=== PATIENT | female | born 1940 | race Caucasian/White ===

== ENCOUNTER 2019-04-29 17:51 | Inpatient (IN) | payer OTHER, MEDICARE ==
[~2019-04-29] VITALS: Ht 152.4 cm; Wt 60.6 kg
[~2019-04-29 17:51] MED LIST: ABAC300; ALPR1 PO; AMLO5 PO; AMOCLA500 PO; ASPI81CH PO; ATOR20 PO; CEFU500 PO; CEPH500 PO; CHLO25 PO; CHLO25B PO; CLON.2 PO; CLON.2TP TOP; CYCL10 PO; Chlorthalidone25 MG PO; Colace100 MG PO; Cortef5 MG PO; Cytomel5 MCG PO; DESM.01SO; DESMOPRESS10 MCG/0.1; DESMOPRESSIN ACE5 ML; DESMOPRESSIN NS; ESTRTP VAG; FERR325 PO; HYDCOR10 PO; HYDR1TAB94 PO; LANS15EC PO; LEVSOD100 PO; LOSA50 PO; METF500 PO; METO10 PO; METO50ER PO; MIRALAX119 GM PO; NICO2 PO; NITR.4SL SL; OMEP20ER PO; ONDA4 PO; ONDA4ODT MM; OXYC10TA19 PO; OXYC5 PO; PANT40 PO; PHENA200 PO; PROC25S PR; Prilosec Otc20 MG PO; SERT50 PO; SPIR25 PO; STOOL SOFTENER1 EAC1 PO; Senna S Tablet1 EACH PO
[2019-04-29] MEDS ORDERED: ASPI81CH PO (18:24)
[2019-04-29] MEDS ORDERED: AMLO10 PO (18:24)
[2019-04-29] MEDS ORDERED: Vitamin D2000 UNIT PO (18:25)
[2019-04-29] MEDS ORDERED: Augmentin 875-1 EACH PO (18:25)
[2019-04-29] MEDS ORDERED: ATOR40TA PO (18:25)
[2019-04-29] MEDS ORDERED: DOCU100 PO (18:26)
[2019-04-29] MEDS ORDERED: CLON.2 PO (18:26)
[2019-04-29] MEDS ORDERED: HYDCOR10 PO (18:27)
[2019-04-29] MEDS ORDERED: FERSU300 PO (18:27)
[2019-04-29] MEDS ORDERED: GLIP5 PO (18:27)
[2019-04-29] MEDS ORDERED: Cortef5 MG PO (18:28)
[2019-04-29] MEDS ORDERED: HYDR454TO TOP (18:28)
[2019-04-29] MEDS ORDERED: LEVSOD50 PO (18:29)
[2019-04-29] MEDS ORDERED: EQ GENTLE30 ML BOTHEYES (18:29)
[2019-04-29] MEDS ORDERED: LIOT5 PO (18:29)
[2019-04-29] MEDS ORDERED: METO50ER PO (18:30)
[2019-04-29] MEDS ORDERED: ONDA4 PO (18:30)
[2019-04-29] MEDS ORDERED: OMEPRAZOLE20 MG PO (18:30)
[2019-04-29] MEDS ORDERED: LOSA50 PO (18:30)
[2019-04-29] MEDS ORDERED: OXYC5 PO (18:31)
[2019-04-29] MEDS ORDERED: SENN187 PO (18:31)
[2019-04-29 22:23] LABS: Albumin, Blood 3.1 g/dL (3.4-5.0); Albumin/Globulin Ratio 0.9 (0.8-1.8); Bilirubin, Total 0.3 mg/dL (0.1-1.0); Bun/Creatinine Ratio 15.7 (12.0-20.0); Calcium, Blood 8.5 mg/dL (8.5-10.1); Creatinine, Blood 1.15 mg/dL (0.40-1.00); Globulin, Blood 3.6 g/dL (2.2-4.0); Potassium, Blood 4.5 mmol/L (3.5-5.5); Total Protein, Blood 6.7 g/dL (6.4-8.2)
--- NOTE | 2019-04-29 23:08 | NUR ---
PATIENT IS A NEW ADMIT FROM THE ED. AXO X3 AND FOUR PERSON TRANSFER FROM [facility] TO BED. 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 PACEMAKER REPLACED THIS YEAR. NEW T.E.N.S. DEVICE ON LOW BACK THIS THURSDAY. CEDS. CBG 91 ON ADMIT. REPORTS LOW BACK PAIN FROM DIVERTICULITIS. ROOM AIR. ORIENTED TO ROOM AND CALL LIGHT SYSTEM. CALL LIGHT IN REACH. WILL CONTINUE TO MONITOR.
--- NOTE | 2019-04-30 00:29 | NUR ---
NS INFUSING AT 150 mL/HR X ONE BAG. IV ABXS INFUSING. PATIENT TOLERATED CHICKEN BROTH AND FLUIDS. DENIES N/V. CALL LIGHT IN REACH.
--- NOTE | 2019-04-30 02:24 | NUR ---
PATIENT SLEEPING NS INFUSING AT 150mL/HR. IV ABX INFUSED. CALL LIGHT IN REACH.
--- NOTE | 2019-04-30 03:37 | NUR ---
SHIFT SUMMARY PATIENT HAD NO ACUTE CHANGES SINCE ADMIT. AXO X3 AND BEDFAST. TOLERATING FULL LIQUID DIET AND FLUIDS. CBG 91. PATIENT REPORTS HAVING HER PACEMAKER REPLACED THREE MONTHS AGO AND THURSDAY HAVING A T.E.N.S. IMPLANT IN LOW BACK. PIV REMAINS INTACT. NS INFUSING AT 150 mL/HR. TWO IV ABXS INFUSED. REPORTED ABDOMEN PAIN X ONE AND OXY 5 MG PO GIVEN PER EMAR. TAKES MEDICAITON WHOLE WITH WATER. BLIND IN R EYE AND 30% VISION REPORTED IN L EYE. CEDS. ACTIVE BOWEL TONES X 4 QUADRANTS. COOPERATIVE WITH CARE. CALL LIGHT IN REACH. BED IN LOWEST POSITION. WILL CONTINUE TO MONITOR UNTIL DAY SHIFT NURSE ASSUMES CARE.
[2019-04-30 05:30] LABS: BASOPHILS ABSOLUTE AUTO 0.07 K/mm3 (0.00-0.23); BASOPHILS PERCENT AUTO 0 % (0-2); EOSINOPHILS ABSOLUTE AUTO 0.36 K/mm3 (0.00-0.68); EOSINOPHILS PERCENT AUTO 2 % (0-6); Hematocrit 35.2 % (33.0-51.0); Hemoglobin 11.1 g/dL (11.5-16.0); IMMATURE GRAN ABSOLUTE AUTO 0.07 K/mm3 (0.00-0.10); IMMATURE GRAN PERCENT AUTO 0 % (0-1); LYMPHOCYTES ABSOLUTE AUTO 2.34 K/mm3 (0.84-5.20); LYMPHOCYTES PERCENT AUTO 15 % (21-46); MONOCYTES ABSOLUTE AUTO 1.01 K/mm3 (0.16-1.47); MONOCYTES PERCENT AUTO 6 % (4-13); Mean Corpuscular HGB 28.8 pg (26.0-34.0); Mean Corpuscular HGB Conc 31.5 g/dL (31.5-36.5); Mean Corpuscular Volume 91 fL (80-100); Mean Platelet Volume 9.6 fL (9.1-12.4); NEUTROPHILS PERCENT AUTO 76 % (41-73); Platelet Count 236 K/mm3 (150-400); RDW Coefficient Variation 13.9 % (11.7-14.2); RDW Standard Deviation 46.9 fL (35.1-46.3); Red Blood Cell Count 3.85 M/mm3 (3.80-5.20); White Blood Cell Count 15.85 K/mm3 (4.00-11.30)
[2019-04-30 05:46] LABS: Bun/Creatinine Ratio 14.9 (12.0-20.0); Calcium, Blood 8.1 mg/dL (8.5-10.1); Creatinine, Blood 1.21 mg/dL (0.40-1.00); Potassium, Blood 4.1 mmol/L (3.5-5.5)
--- NOTE | 2019-04-30 17:51 | NUR ---
RECEIVED T/C FROM PT'S DAUGHTER ENMANUEL. SHE EXPRESSED CONCERN ABOUT PT'S FULL LIQUID DIET AND THAT PT WAS RECEIVING V8 JUICE. ENMANUEL IS UNDER THE IMPRESSION THAT PT SHOULD BE ON A CLEAR LIQUID DIET. THIS CONCERN PASSED ALONG TO DR BRYANT AND ORDERS RECEIVED FOR A DIET CHANGE FROM FULL LIQUID TO CLEAR LIQUID.
--- NOTE | 2019-04-30 17:56 | NUR ---
PT CONTINUES TO REPORT ABD PAIN, WORSE WITH COUGH. DIET CHANGED FROM FULL LIQUID TO CLEAR LIQUID. MEDICATED FOR NAUSEA X1 THIS AFTERNOON, NO TOLERATING PO MEDS WELL. MEDICATED WITH 12.5 mcg IV FENTANLY WHICH PT REPORTED SOME SMALL RELIEF. WILL CONTINUE TO MONITOR AND REPORT TO ONCOMING RN
--- NOTE | 2019-05-01 04:00 | NUR ---
SHIFT SUMMARY PATIENT HAD NO ACUTE CHANGES OBSERVED THIS SHIFT. AXOX 3 AND REPORTED ABDOMINAL PAIN X 2. RECEIVED IV FENTANYL 25 MCG AND OXY 5 MG. CBG 107. PIV REMAINS INTACT. IV ABXS INFUSED. DENIES SOB AND N/V. PATIENT INCONTINENT. VSS/AFBERILE. CLEAR LIQUID DIET. TAKES MEDICATION WHOLE WITH WATER. COOPERATIVE WITH CARE. CALL LIGHT IN REACH. BED IN LOWEST POSITION. WILL CONTINUE TO MONITOR UNTIL DAY SHIFT NURSE ASSUMES CARE.
[2019-05-01 09:42] LABS: BASOPHILS ABSOLUTE AUTO 0.03 K/mm3 (0.00-0.23); BASOPHILS PERCENT AUTO 0 % (0-2); EOSINOPHILS ABSOLUTE AUTO 0.65 K/mm3 (0.00-0.68); EOSINOPHILS PERCENT AUTO 4 % (0-6); Hematocrit 33.3 % (33.0-51.0); Hemoglobin 10.9 g/dL (11.5-16.0); IMMATURE GRAN ABSOLUTE AUTO 0.08 K/mm3 (0.00-0.10); IMMATURE GRAN PERCENT AUTO 1 % (0-1); LYMPHOCYTES ABSOLUTE AUTO 1.89 K/mm3 (0.84-5.20); LYMPHOCYTES PERCENT AUTO 13 % (21-46); MONOCYTES ABSOLUTE AUTO 0.85 K/mm3 (0.16-1.47); MONOCYTES PERCENT AUTO 6 % (4-13); Mean Corpuscular HGB 29.3 pg (26.0-34.0); Mean Corpuscular HGB Conc 32.7 g/dL (31.5-36.5); Mean Corpuscular Volume 90 fL (80-100); Mean Platelet Volume 9.7 fL (9.1-12.4); NEUTROPHILS ABSOLUTE AUTO 11.64 K/mm3 (1.96-9.15); NEUTROPHILS PERCENT AUTO 77 % (41-73); Platelet Count 206 K/mm3 (150-400); RDW Standard Deviation 45.6 fL (35.1-46.3); Red Blood Cell Count 3.72 M/mm3 (3.80-5.20); White Blood Cell Count 15.14 K/mm3 (4.00-11.30)
[2019-05-01 09:57] LABS: Albumin, Blood 2.3 g/dL (3.4-5.0); Anion Gap 7 mmol/L (6-16); Blood Urea Nitrogen 14 mg/dL (8-24); Bun/Creatinine Ratio 11.7 (12.0-20.0); CO2, Blood 24 mmol/L (21-32); Calcium, Blood 7.9 mg/dL (8.5-10.1); Chloride, Blood 107 mmol/L (98-108); Glomerular Filtration Rate 46 (60-); Glucose, Blood 90 mg/dL (70-99); Phosphorus, Blood 2.4 mg/dL (2.5-4.9); Potassium, Blood 3.9 mmol/L (3.5-5.5); Sodium, Blood 138 mmol/L (136-145)
--- NOTE | 2019-05-01 19:10 | NUR ---
NO ACUTE CHANGES NOTED THIS SHIFT, WILL CONTINUE TO MONITOR AND REPORT TO ONCOMING RN
--- NOTE | 2019-05-01 21:41 | NUR ---
PATIENT TRANSFER TO ROOM 343 FOR FLOOR CLEANING. REPORT GIVEN TO ANTWON RUDOLPH.
--- NOTE | 2019-05-02 00:03 | NUR ---
PATIENT REPORTS ABDOMEN PAIN AND RECEIVED FENTANYL 25 MCG PER EMAR.
--- NOTE | 2019-05-02 00:30 | NUR ---
PATIENT REPORTS CHICKEN BROTH HELPS HER NAUSEA.
--- NOTE | 2019-05-02 03:44 | NUR ---
SHIFT SUMMARY PATIENT REPORTED ABDOMINAL PAIN X THREE AND RECEIVED FENTANYL 25 MCG PER EMAR. N/V X TWO AND ZOFRAN GIVEN PER EMAR. PATIENT REPORTS SIPS OF CHICKEN BROTH HELP WITH N/V. AXO X 3 AND 1-2 PERSON ASSIST TO BSC. PIV REMAINS INTACT. IV ABXS INFUSED X TWO. CBG 127. TAKES MEDICATION WHOLE WITH WATER. CALL LIGHT IN REACH. BED IN LOWEST POSITION. WILL CONTINUE TO MONITOR UNTIL DAY SHIFT NURSE ASSUMES CARE.
[2019-05-02 05:11] LABS: BASOPHILS ABSOLUTE AUTO 0.03 K/mm3 (0.00-0.23); BASOPHILS PERCENT AUTO 0 % (0-2); EOSINOPHILS ABSOLUTE AUTO 0.94 K/mm3 (0.00-0.68); EOSINOPHILS PERCENT AUTO 8 % (0-6); Hemoglobin 10.3 g/dL (11.5-16.0); IMMATURE GRAN ABSOLUTE AUTO 0.06 K/mm3 (0.00-0.10); IMMATURE GRAN PERCENT AUTO 1 % (0-1); LYMPHOCYTES ABSOLUTE AUTO 1.41 K/mm3 (0.84-5.20); LYMPHOCYTES PERCENT AUTO 13 % (21-46); MONOCYTES ABSOLUTE AUTO 0.62 K/mm3 (0.16-1.47); MONOCYTES PERCENT AUTO 6 % (4-13); Mean Corpuscular HGB 29.2 pg (26.0-34.0); Mean Corpuscular HGB Conc 32.2 g/dL (31.5-36.5); Mean Corpuscular Volume 91 fL (80-100); NEUTROPHILS ABSOLUTE AUTO 8.24 K/mm3 (1.96-9.15); NEUTROPHILS PERCENT AUTO 73 % (41-73); Platelet Count 200 K/mm3 (150-400); RDW Coefficient Variation 13.7 % (11.7-14.2); RDW Standard Deviation 45.3 fL (35.1-46.3); Red Blood Cell Count 3.53 M/mm3 (3.80-5.20)
[2019-05-02 05:52] LABS: Albumin, Blood 2.3 g/dL (3.4-5.0); Anion Gap 6 mmol/L (6-16); Blood Urea Nitrogen 12 mg/dL (8-24); Bun/Creatinine Ratio 10.3 (12.0-20.0); CO2, Blood 24 mmol/L (21-32); Calcium, Blood 7.8 mg/dL (8.5-10.1); Chloride, Blood 105 mmol/L (98-108); Creatinine, Blood 1.16 mg/dL (0.40-1.00); Glomerular Filtration Rate 48 (60-); Glucose, Blood 122 mg/dL (70-99); Phosphorus, Blood 2.3 mg/dL (2.5-4.9); Sodium, Blood 135 mmol/L (136-145)
--- NOTE | 2019-05-02 17:44 | NUR ---
SHIFT SUMMARY PT AXO TO SELF, PLACE, FAMILY AND FOLLOWING DIRECTIONS THOUGH PT IS FORGETFUL, NOOKSACK AND HAS FAULTY RECALL AT TIMES. WHEN NURSE ARRIVED BACK FROM LUNCH AT 1345, PT WAS COMPLAINING OF ITCHING IN HER LEGS BILATERALLY AND HER DAUGHTER WAS UPSET ABOUT A POSSIBLE ALLERGY IN THE CONTRAST THAT THE PT WAS DRINKING. CHARGE NURSE VERIFIED WITH IMAGING THAT THE CONTRAST SOLUTION WAS COMPATIBLE WITH PT'S STATED ALLERGIES. THEY CONFIRMED. NOTIFIED, NEW ORDERS INITIATED. PT'S DAUGHTER CALMED USING THERAPEUTIC COMMUNICATION AND ACTIVE LISTENING. PT RESTING COMFORTABLY AT THIS TIME, BED IN LOW POSITION, CALL LIGHT WITHIN REACH. NEW IV PLACED THIS SHIFT, PATENT AND INFUSING.
--- NOTE | 2019-05-02 17:47 | NUR ---
Sent request for patient advance directive. suggest pharmacy review of medications and review of lipitor
[2019-05-03 05:11] LABS: BASOPHILS ABSOLUTE AUTO 0.02 K/mm3 (0.00-0.23); BASOPHILS PERCENT AUTO 0 % (0-2); EOSINOPHILS ABSOLUTE AUTO 0.87 K/mm3 (0.00-0.68); EOSINOPHILS PERCENT AUTO 10 % (0-6); Hematocrit 34.3 % (33.0-51.0); Hemoglobin 11.1 g/dL (11.5-16.0); IMMATURE GRAN ABSOLUTE AUTO 0.06 K/mm3 (0.00-0.10); IMMATURE GRAN PERCENT AUTO 1 % (0-1); LYMPHOCYTES PERCENT AUTO 18 % (21-46); MONOCYTES ABSOLUTE AUTO 0.57 K/mm3 (0.16-1.47); MONOCYTES PERCENT AUTO 7 % (4-13); Mean Corpuscular HGB 29.4 pg (26.0-34.0); Mean Corpuscular HGB Conc 32.4 g/dL (31.5-36.5); Mean Corpuscular Volume 91 fL (80-100); NEUTROPHILS ABSOLUTE AUTO 5.63 K/mm3 (1.96-9.15); NEUTROPHILS PERCENT AUTO 64 % (41-73); Platelet Count 234 K/mm3 (150-400); RDW Coefficient Variation 13.7 % (11.7-14.2); RDW Standard Deviation 45.7 fL (35.1-46.3); Red Blood Cell Count 3.78 M/mm3 (3.80-5.20); White Blood Cell Count 8.75 K/mm3 (4.00-11.30)
--- NOTE | 2019-05-03 05:14 | NUR ---
SHIFT SUMMARY PT SLEPT FAIRLY WELL T/O SHIFT. DID HAVE AN EPISODE OF INCREASED ITCHINESS AND REDNESS IN LEGS AFTER THE START OF THE IV FLAGYL. PT DOES HAVE FLAGYL LISTED AN UNKNOWN ALLERGY. HOSPITALIST CALLED AND FLAGYL DOSE STOPPED. PT HAD ALSO RECEIVED BENADRYL 2 HOURS PRIOR TO FLAGYL DOSE PER PT REQUEST. WILL CONTINUE TO MONITOR AT THIS TIME.
[2019-05-03 05:41] LABS: Albumin, Blood 2.6 g/dL (3.4-5.0); Anion Gap 9 mmol/L (6-16); Blood Urea Nitrogen 9 mg/dL (8-24); Bun/Creatinine Ratio 8.2 (12.0-20.0); CO2, Blood 23 mmol/L (21-32); Calcium, Blood 7.9 mg/dL (8.5-10.1); Chloride, Blood 105 mmol/L (98-108); Glomerular Filtration Rate 51 (60-); Glucose, Blood 111 mg/dL (70-99); Phosphorus, Blood 3.7 mg/dL (2.5-4.9); Potassium, Blood 3.4 mmol/L (3.5-5.5); Sodium, Blood 137 mmol/L (136-145)
[2019-05-03] MEDS ORDERED: GENTEAL TEARS S10 GM (15:31)
[2019-05-03] MEDS ORDERED: BENADRYL25 MG PO (15:34)
[2019-05-03] MEDS ORDERED: Vsl#3 Capsule1 EACH (15:39)
[2019-05-03] MEDS ORDERED: Percocet 5-3251 EACH PO (15:40)
[2019-05-03] MEDS ORDERED: MIRALAX17 GM PO (15:41)
[2019-05-03] MEDS ORDERED: CIPR500 PO (15:42)
[2019-05-03] MEDS ORDERED: METR500 (15:43)
--- NOTE | 2019-05-03 16:37 | NUR ---
DISCHARGE DISCHARGE MEDICATIONS AND INSTRUCTIONS EXPLAINED TO PATIENT AND PATIENT'S DAUGHTER. THEY STATED UNDERSTANDING. HARD COPY PRESCRIPTION FOR PAIN MEDICATION GIVEN WITH PACKET. FOLLOW UP APPOINTMENTS SCHEDULED WITH PCP AND GASTRO. IV REMOVED WITHOUT DIFFICULTY. BELONGINGS WITH PATIENT. PATIENT TRANSFERED TO PRIVATE VEHICLE VIA WHEELCHAIR.
== END 2019-05-03 16:32 | disposition home or self-care (01) | DRG 392 ==
LOC: ER 17:51 → MEDS 20:08 → ERHOLD 20:08 → MEDS 22:03 → ENPENDDIS 05-03 15:11 → MEDS 05-03 16:32
PROVIDERS: Emergency Medicine; Internal Medicine; ADMIT Hospitalist
PROC: 2W55XYZ Removal of Other Device on Back (ICD-10-PCS; principal; 2019-05-03)
DX: K57.32 Diverticulitis of large intestine without perforation or abscess without bleeding (principal); E23.0 Hypopituitarism; I87.1 Compression of vein; E11.22 Type 2 diabetes mellitus with diabetic chronic kidney disease; N18.3 Chronic kidney disease, stage 3 (moderate); E03.9 Hypothyroidism, unspecified; K59.00 Constipation, unspecified; M54.5 Low back pain; G89.29 Other chronic pain; E87.6 Hypokalemia; F17.210 Nicotine dependence, cigarettes, uncomplicated; I12.9 Hypertensive chronic kidney disease with stage 1 through stage 4 chronic kidney disease, or unspecified chronic kidney disease; E83.39 Other disorders of phosphorus metabolism; D50.9 Iron deficiency anemia, unspecified; L27.0 Generalized skin eruption due to drugs and medicaments taken internally; T50.8X5A Adverse effect of diagnostic agents, initial encounter; Y92.239 Unspecified place in hospital as the place of occurrence of the external cause; Z95.0 Presence of cardiac pacemaker; Z85.528 Personal history of other malignant neoplasm of kidney; Z79.84 Long term (current) use of oral hypoglycemic drugs; Z79.82 Long term (current) use of aspirin; Z79.52 Long term (current) use of systemic steroids; Z79.899 Other long term (current) drug therapy
CPT/HCPCS: 36415; 74176; 80048; 80053; 80069; 82947; 85025; 96374; 96375; 99285-25; A9270; J0744; J1170; J1650; J2405; J3010; J7030; J7050; Q0163

== ENCOUNTER 2019-07-04 21:55 | Inpatient (IN) | payer MEDICARE ==
[~2019-07-04] VITALS: Ht 152.4 cm; Wt 58.4 kg
[~2019-07-04 21:55] MED LIST changes: +AMLO10 PO; +ATOR40TA PO; +Augmentin 875-1 EACH PO; +BENADRYL25 MG PO; +CIPR500 PO; +DOCU100 PO; +EQ GENTLE30 ML BOTHEYES; +FERSU300 PO; +GENTEAL TEARS S10 GM; +GLIP5 PO; +HYDR454TO TOP; +LEVSOD50 PO; +LIOT5 PO; +METR500; +MIRALAX17 GM PO; +OMEPRAZOLE20 MG PO; +Percocet 5-3251 EACH PO; +SENN187 PO; +Vitamin D2000 UNIT PO; +Vsl#3 Capsule1 EACH
[2019-07-05 00:34] LABS: Hematocrit 41.4 % (33.0-51.0); Hemoglobin 13.4 g/dL (11.5-16.0); Mean Corpuscular HGB 29.1 pg (26.0-34.0); Mean Corpuscular HGB Conc 32.4 g/dL (31.5-36.5); Mean Corpuscular Volume 90 fL (80-100); Mean Platelet Volume 10.3 fL (9.1-12.4); Platelet Count 253 K/mm3 (150-400); RDW Standard Deviation 45.9 fL (35.1-46.3); White Blood Cell Count 23.62 K/mm3 (4.00-11.30)
[2019-07-05 00:51] LABS: BAND PERCENT MAN 9 % (0-8); BASOPHILS ABSOLUTE MAN 0.23 K/mm3 (0.00-0.23); BASOPHILS PERCENT MAN 1 % (0-2); EOSINOPHILS PERCENT MAN 0 % (0-6); LYMPHOCYTES ABSOLUTE MAN 0.94 K/mm3 (0.84-5.20); LYMPHOCYTES PERCENT MAN 4 % (21-46); MONOCYTES ABSOLUTE MAN 1.65 K/mm3 (0.16-1.47); MONOCYTES PERCENT MAN 7 % (4-13); NEUTROPHILS ABSOLUTE MAN 20.78 K/mm3 (1.96-9.15); SEG NEUTROPHILS PERCENT MAN 79 % (41-73); TOTAL CELLS COUNTED 100
[2019-07-05 00:52] LABS: Albumin, Blood 3.2 g/dL (3.4-5.0); Albumin/Globulin Ratio 0.9 (0.8-1.8); Bilirubin, Total 0.5 mg/dL (0.1-1.0); Bun/Creatinine Ratio 16.6 (12.0-20.0); Calcium, Blood 9.3 mg/dL (8.5-10.1); Creatinine, Blood 1.51 mg/dL (0.40-1.00); Globulin, Blood 3.4 g/dL (2.2-4.0); Potassium, Blood 4.6 mmol/L (3.5-5.5); Total Protein, Blood 6.6 g/dL (6.4-8.2)
[2019-07-05 02:58] LABS: BASOPHILS ABSOLUTE AUTO 0.07 K/mm3 (0.00-0.23); BASOPHILS PERCENT AUTO 0 % (0-2); EOSINOPHILS ABSOLUTE AUTO 0.07 K/mm3 (0.00-0.68); EOSINOPHILS PERCENT AUTO 0 % (0-6); Hematocrit 40.8 % (33.0-51.0); Hemoglobin 13.5 g/dL (11.5-16.0); IMMATURE GRAN ABSOLUTE AUTO 0.13 K/mm3 (0.00-0.10); IMMATURE GRAN PERCENT AUTO 1 % (0-1); LYMPHOCYTES ABSOLUTE AUTO 1.78 K/mm3 (0.84-5.20); LYMPHOCYTES PERCENT AUTO 8 % (21-46); MONOCYTES PERCENT AUTO 5 % (4-13); Mean Corpuscular HGB 29.5 pg (26.0-34.0); Mean Corpuscular HGB Conc 33.1 g/dL (31.5-36.5); Mean Corpuscular Volume 89 fL (80-100); Mean Platelet Volume 10.2 fL (9.1-12.4); NEUTROPHILS ABSOLUTE AUTO 20.33 K/mm3 (1.96-9.15); NEUTROPHILS PERCENT AUTO 87 % (41-73); Platelet Count 251 K/mm3 (150-400); RDW Coefficient Variation 14.1 % (11.7-14.2); RDW Standard Deviation 45.9 fL (35.1-46.3); Red Blood Cell Count 4.58 M/mm3 (3.80-5.20); White Blood Cell Count 23.48 K/mm3 (4.00-11.30)
--- NOTE | 2019-07-05 05:02 | NUR ---
07/05/19 0500 ADMISSION PROCESS COMPLETED. PT JUST VOIDED 200 ML OF CLEAR, MENDEZ URINE ON BEDPAN. FALLING ASLEEP EASILY. STATES SHE STILL HAS SLIGHT NAUSEA AND PAIN AT "7" BEFORE. ENCOURAGED TO REST AND RN WILL RE-EVALUATE LATER. NO EMESIS OR DRY HEAVING SINCE SHE ARRIVED TO FLOOR. VITALS STABLE.
--- NOTE | 2019-07-05 07:30 | NUR ---
07/05/19 0645 STILL HAVING NUSEA AND RN HAD TO PAGE MD FOR ANOTHER ANTI-EMETIC. SEE MAR FOR MED GIVEN. HELD ORAL MEDS FOR NOW.
--- NOTE | 2019-07-05 07:45 | NUR ---
PT A/O STATES NO OVERALL PAIN, JUST N/V. 150 EMESIS IN BAG. MEDICATED PER EMAR. BP HIGH, CALLED DR NGUYỄN STOP IVF AND IV MED. ORDERS PENDING. H/R IRREG, NO MURMER NOTED. PACER LUCW. NO TELE. LUNGS CLEAR, RESP EASY, UNLABORED. ON R.A. BT X4 LAST BM YEST. LOOSE. VOIDS PER BATHROOM. 1 ASST. BED IN LOW POSITION, CALL LITE IN REACH, CALLS APPROP.
--- NOTE | 2019-07-05 08:30 | NUR ---
pt vomiting. 3x this am. high bp. called dr lange. orders pending
--- NOTE | 2019-07-05 11:51 | NUR ---
Spiritual care visit conducted. Patient is on her side in bed struggling with nausea and daughter, Amalia is bedside. Patient is needing quiet and waiting on meds. Patient informs me that she is a Catholic and would not mind a brief prayer. I gladly provide prayer. Patient and Amalia thank me for the prayer. I will continue to remain available to patient and family.
--- NOTE | 2019-07-05 12:22 | NUR ---
PT STATES ROBERT DOWN TO 3, DOING BETTER. N/V STOPPED FOR NOW.
--- NOTE | 2019-07-05 12:56 | NUR ---
CALLED DR NGUYỄN BP 191/83, PT MORE RESTED SINCE ZOFRAN, REGLAN, MORPHINE, BUT STILL HIGH BP. NOT VOMITING AT THIS TIME. ORDERS FOR HYDRALAZINE IV 10MG ONCE. DONE
--- NOTE | 2019-07-05 14:44 | NUR ---
PER DR HUIZAR N/S AT 100 CONT. IV
--- NOTE | 2019-07-05 15:41 | NUR ---
1400. PT IN PAIN. CHANGES NOTED. INCREASED H/R 60'S TO 120'S. PT EMESIS TURNED FROM GREEN YELLOW TO NIELSEN. CONTINUES TO VOMIT SMALL AMTS. ZOFRAN AND REGLAN ON BOARD. PT STATES MORPHINE HELPS BRING PAIN DOWN TO 3, TOLERABLE. PT NOT THROWING UP WHEN RECENT PAIN LINE LOCATOR. SPOKE TO BP STAYING UP IN SPITE OF HYDRALAZINE. H/R INCREASING. PT LOOKS WORSE. WEAKER. REQUESTED TELE. (S/TACH IN 120'S, PVC'S). TO PLACE ORDERS FOR CT AND U/A. 1410 DR HUIZAR CALLED. REQUESTED N/S AT 100. DONE.
--- NOTE | 2019-07-05 17:43 | NUR ---
PT IN PAIN THIS AFT AND HAD SEVERAL EPISODES OF N/V. MEDICATED FOR N/V, NOT MUCH IMPROVEMENT. MED FOR PAIN, N/V MUCH BETTER. BP REMAINS HIGH, HYDRALAZINE ADMIN, DR NOTIFIED. FAMILY IN AND OUT TODAY. DR HUIZAR ON BOARD TODAY. NEW ABD CT TAKEN THIS AFT. NO OTHER CONCERNS AT THIS TIME. BED IN LOW POSITION, CALL LITE IN REACH, CALLS APPROP
--- NOTE | 2019-07-05 18:12 | NUR ---
1450 N/S IVF HANGING, BUT STOPPED THIS AM. STARTED FLUID AT 100ML / HR PER DR HUIZAR.
--- NOTE | 2019-07-05 18:25 | NUR ---
DR HUIZAR TO ROOM. STATES EXPECTS FURTHER ISSUES WITH BOWELS. TAKING TO SURGERY. WILL RECOVER TO ICU OR PCU. NOTIFIED FAMILY. DR HUIZAR ALSO REQUEST HOLD CATAPRES UNTIL AFTER SURGERY. HE STATES WILL ADVISE DR GIRON. DR WILL DISCUSS KEEPING N/S AT [address] GIRON
--- NOTE | 2019-07-05 18:54 | NUR ---
TO SURGERY AT 1853
--- NOTE | 2019-07-05 21:10 | NUR ---
07/05/192109 Brandan Koenig DR COUNSULTED PT DAUGHTER CONCERNING NEED FOR LAPAROSCOPIC CHOLECYSTECTOMY BOTH DAUGHTERS AND GRANDDAUGHTER AGREED WITH PLAN.
[2019-07-05 22:13] LABS: Source, Urine Clean Catch
[2019-07-05 22:15] LABS: Appearance, Urine Clear (Clear); Bilirubin, Urine Neg (Neg); Blood, Urine 1+ (Neg); Color, Urine Yellow (P-Yellow); Glucose Qualitative, Urine Neg (Neg); Ketones, Urine Neg (Neg); Leukocyte Esterase, Urine 2+ (Neg); Nitrite, Urine Neg (Neg); Protein, Urine 2+ (Neg); Specific Gravity, Urine 1.015 (1.003-1.022); Urobilinogen, Urine NORM (Normal)
[2019-07-05 22:24] LABS: Bacteria Few /hpf; Red Blood Cells, Urine Rare /hpf (0-2); Squamous Epithelial Cells Not Seen /hpf (Few); White Blood Cells, Urine 50-100 /hpf (0-5)
--- NOTE | 2019-07-05 22:52 | NUR ---
ARRIVAL TO ICU PT ARRIVES FROM OR AT 2140. EXTUBATED AND ON 10L NRB. CONFUSED BUT ABLE TO ANSWER QUESTIONS AND FOLLOW COMMANDS. PT HAS 4 SMALL TAPE DRESSINGS ON ABDOMEN; ALL ARE DRY, CLEAN, AND INTACT. DENIES NAUSEA AND PAIN AT THIS TIME. DAUGHTER AT BEDSIDE TALKING WITH PT. PT TOLERATING SMALL SIPS OF WATER. MIV NS INFUSING AT 100 ML/HR PER ORDER. VSS. NSR, HR 90S. BP STABLE. SHORTLY AFTER ARRIVAL, O2 CHANGED TO 2L NC. CALL LIGHT WITHIN REACH. WILL CONTINUE TO MONITOR PT.
--- NOTE | 2019-07-06 03:20 | NUR ---
REASSESSMENT PT AWAKENED FOR LAB DRAW. C/O PAIN; REPOSITIONED AND MORPHINE 2 MG IVP GIVEN. DAUGHTER REMAINS SLEEPING AT BEDSIDE. VSS. [place], HR 100-115. BP STABLE. TOLERATING 2L NC. SURGICAL DRESSINGS REMAINS CLEAN, DRY AND INTACT. CALL LIGHT WITHIN REACH. MIV NS CONTINUES TO INFUSE AT 100 ML/HR PER ORDER. WILL CONTINUE TO MONITOR.
[2019-07-06 03:21] LABS: BASOPHILS ABSOLUTE AUTO 0.02 K/mm3 (0.00-0.23); BASOPHILS PERCENT AUTO 0 % (0-2); EOSINOPHILS ABSOLUTE AUTO 0.01 K/mm3 (0.00-0.68); EOSINOPHILS PERCENT AUTO 0 % (0-6); Hematocrit 34.8 % (33.0-51.0); Hemoglobin 11.4 g/dL (11.5-16.0); IMMATURE GRAN ABSOLUTE AUTO 0.09 K/mm3 (0.00-0.10); IMMATURE GRAN PERCENT AUTO 1 % (0-1); LYMPHOCYTES ABSOLUTE AUTO 0.67 K/mm3 (0.84-5.20); LYMPHOCYTES PERCENT AUTO 4 % (21-46); MONOCYTES ABSOLUTE AUTO 0.19 K/mm3 (0.16-1.47); MONOCYTES PERCENT AUTO 1 % (4-13); Mean Corpuscular HGB Conc 32.8 g/dL (31.5-36.5); Mean Corpuscular Volume 89 fL (80-100); Mean Platelet Volume 10.2 fL (9.1-12.4); NEUTROPHILS ABSOLUTE AUTO 16.41 K/mm3 (1.96-9.15); NEUTROPHILS PERCENT AUTO 94 % (41-73); Platelet Count 187 K/mm3 (150-400); RDW Coefficient Variation 14.4 % (11.7-14.2); RDW Standard Deviation 46.7 fL (35.1-46.3); Red Blood Cell Count 3.93 M/mm3 (3.80-5.20); White Blood Cell Count 17.39 K/mm3 (4.00-11.30)
[2019-07-06 03:37] LABS: Albumin, Blood 2.9 g/dL (3.4-5.0); Anion Gap 8 mmol/L (6-16); Blood Urea Nitrogen 17 mg/dL (8-24); Bun/Creatinine Ratio 13.1 (12.0-20.0); CO2, Blood 20 mmol/L (21-32); Calcium, Blood 7.8 mg/dL (8.5-10.1); Chloride, Blood 113 mmol/L (98-108); Glomerular Filtration Rate 42 (60-); Glucose, Blood 224 mg/dL (70-99); Potassium, Blood 3.9 mmol/L (3.5-5.5); Sodium, Blood 141 mmol/L (136-145)
--- NOTE | 2019-07-06 05:42 | NUR ---
SHIFT SUMMARY PT ARRIVED FROM OR AT 2140 LASTNIGHT. SINCE THEN, SHE HAS SLEPT ON/OFF PEACEFULLY. DOES REQUIRE SOME ORIENTATION UPON AWAKENING. WAS GIVEN FENTANYL AND MORPHINE FOR PAIN NEEDED THROUGHOUT NIGHT. HAS REMAINED IN NSR, HR 100-115 WITH MAP GREATER THAN 65. AFEBRILE DURING NIGHT. TURNED NEEDED. DAUGHTER SLEEPING AT BEDSIDE. 600 ML URINE OUTPUT FROM CHESTER CATHETER. MIV INFUSED AT 100 ML/HR PER ORDER AND CONTINUES TO INFUSE. SURGICAL DRESSING REMAIN CLEAN, DRY AND INTACT. NO SIGNS OF RESP DISTRESS. NO VOMITING OR NAUSEA DURING NIGHT. WILL GIVE BEDSIDE, HANDOFF REPORT TO DAY RN.
--- NOTE | 2019-07-06 09:00 | NUR ---
INITIAL ASSESSMENT PATIENT RESTING QUIETLY IN BED UPON ENTERING ROOM. PATIENT ALERT AND ORIENTED X 4. R EYE DEVIATES OUTWARD. PATIENT WEAK BUT ABLE TO MOVE ALL EXTREMITIES. PATIENT STATES SHE USES A WALKER AT HOME. PATIENT COMPLAINED OF EPIGASTRIC PAIN EARLIER BUT REPORTED RELIEF AFTER PRN PAIN MEDICATION GIVEN. PATIENT HAS TEMP OF 99.1 DEGREES FAHRENHEIT. PATIENT DECREASED FROM 2 L NC TO RA AND REMAINS SATTING 90% AND GREATER. LUNGS CLEAR IN UPPER LOBES AND COARSE IN LOWER LOBES. PATIENT REPORTS HAVING OCCASIONAL DRY COUGH. PATIENT IN SR TO ST, HR 90S TO 1-TEENS. SBP 110 TO 120S. PATIENT HAS PACEMAKER. SCDS IN PLACE. ABDOMEN MILDLY DISTENDED, SOFT, TENDER, WITH HYPERACTIVE BS. LAST BM ON THE . CHESTER DRAINING ADEQUATE YELLOW/ CLEAR COLORED URINE. 4 INCISIONS NOTED TO ABDOMEN FROM LAP. DRESSINGS C/D/I. SKIN IS FRAGILE, DRY, BRUISED T/O. NS INFUSING AT 100 MLS/ HOUR. BED LOW, CALL LIGHT IN REACH. WILL CONTINUE TO MONITOR PATIENT FREQUENTLY THROUGHOUT SHIFT.
--- NOTE | 2019-07-06 11:51 | NUR ---
DR. GIRON INFORMED OF PHOSPHORUS LEVEL OF 2.0 THIS AM. NO ORDER RECEIVED.
--- NOTE | 2019-07-06 12:45 | NUR ---
PATIENT RESTING QUIETLY IN BED. NO COMPLAINTS OF PAIN. VITAL SIGNS STABLE. CHESTER REMOVED. NO OTHER ACUTE CHANGES TO NOTE ON AT THIS TIME. WILL CONTINUE TO MONITOR.
--- NOTE | 2019-07-06 13:18 | NUR ---
SHIFT SUMMARY PATIENT REMAINED ALERT AND ORIENTED, SLIGHTLY HARD OF SEEING. PATIENT HAD TMAX OF 99.3 DEGREES FAHRENHEIT. PATIENT HAD COMPLAINT OF PAIN OT IN EPIGASTRIC AREA, PRN PAIN MEDICATION GIVEN. PATIENT HAS HAD NO MORE COMPLAINTS OF PAIN. PATIENT HAS REMAINED SATTING 90% AND GREATER ON RA. PATIENT HAS REMAINED IN SR TO ST, HR 80S TO 1-TEENS. SBP 90S TO 120S. ABDOMEN REMAINS SOFT, TENDER, MILDLY DISTENDED, WITH HYPERACTIVE BS. PATIENT DID NOT HAVE BM THIS SHIFT. PATIENT STARTED ON CLEAR LIQUID/ ADA DIET THIS AM AND IS TOLERATING WELL. NO COMPLAINTS OF NAUSEA. CHESTER REMOVED. PATIENT HAS NOT VOIDED POST REMOVAL. PATIENT URINE OUTPUT ADEQUATE. DRESSINGS TO ABDOMEN REMAIN C/D/I. NO CHANGES TO SKIN. NS REMAINS INFUSING AT 100 MLS/ HOUR. PATIENT HAS BEEN ON THE PHONE A COUPLE TIMES WITH FAMILY TODAY. NO OTHER CHANGES TO NOTE ON AT THIS TIME. PATIENT WILL BE TRANSFERRING TO SURGICAL FLOOR, ROOM 230 SHORTLY.
--- NOTE | 2019-07-06 14:01 | NUR ---
PATIENT TRANSFERRED TO SURGICAL FLOOR.
--- NOTE | 2019-07-06 14:19 | NUR ---
pt arrived to room 230 from icu pt is s/p zahra rivera yesterday pt stated she has alot of shoulder pain and hiccups has had some gas min belching diet tammi mist given pt given some iv pain meds prior to coming over
--- NOTE | 2019-07-06 17:48 | NUR ---
Spiritual Care intial note: Mrs. Bernard was alone in room and welcoming of conversation. She has been since 1983 and has lived alone since. She has two dtrs who provide love and emotional support. 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 She is a very strong, independant woman who is happy in her life. She would like some clear answers regarding her illness and some relief from pain. No other concerns or fears presented. She is not involved with a episcopal community, but has a praveen javon. she appeared to enjoy conversation and prayer. I will remain available.
--- NOTE | 2019-07-06 17:49 | NUR ---
pt eating dinner dr giles by to see pt
[2019-07-07 04:30] LABS: BASOPHILS ABSOLUTE AUTO 0.02 K/mm3 (0.00-0.23); BASOPHILS PERCENT AUTO 0 % (0-2); EOSINOPHILS ABSOLUTE AUTO 0.01 K/mm3 (0.00-0.68); EOSINOPHILS PERCENT AUTO 0 % (0-6); Hematocrit 30.2 % (33.0-51.0); Hemoglobin 9.5 g/dL (11.5-16.0); IMMATURE GRAN PERCENT AUTO 1 % (0-1); LYMPHOCYTES PERCENT AUTO 9 % (21-46); MONOCYTES ABSOLUTE AUTO 0.78 K/mm3 (0.16-1.47); MONOCYTES PERCENT AUTO 5 % (4-13); Mean Corpuscular HGB 29.2 pg (26.0-34.0); Mean Corpuscular HGB Conc 31.5 g/dL (31.5-36.5); Mean Platelet Volume 10.4 fL (9.1-12.4); NEUTROPHILS ABSOLUTE AUTO 14.81 K/mm3 (1.96-9.15); NEUTROPHILS PERCENT AUTO 86 % (41-73); Platelet Count 150 K/mm3 (150-400); RDW Coefficient Variation 14.7 % (11.7-14.2); RDW Standard Deviation 50.8 fL (35.1-46.3); Red Blood Cell Count 3.25 M/mm3 (3.80-5.20); White Blood Cell Count 17.32 K/mm3 (4.00-11.30)
[2019-07-07 04:38] LABS: Mean Corpuscular Volume 93 fL (80-100)
[2019-07-07 04:50] LABS: Alanine Aminotransfer (ALT/SGP 33 U/L (12-78); Albumin, Blood 2.6 g/dL (3.4-5.0); Albumin/Globulin Ratio 0.9 (0.8-1.8); Alk Phos 70 U/L (50-136); Anion Gap 5 mmol/L (6-16); Aspartate Aminotrans (AST/SGOT 28 U/L (12-37); Bilirubin, Total 0.4 mg/dL (0.1-1.0); Blood Urea Nitrogen 12 mg/dL (8-24); Bun/Creatinine Ratio 11.1 (12.0-20.0); CO2, Blood 21 mmol/L (21-32); Calcium, Blood 7.1 mg/dL (8.5-10.1); Chloride, Blood 114 mmol/L (98-108); Creatinine, Blood 1.08 mg/dL (0.40-1.00); Globulin, Blood 2.8 g/dL (2.2-4.0); Glomerular Filtration Rate 52 (60-); Glucose, Blood 104 mg/dL (70-99); Phosphorus, Blood 2.4 mg/dL (2.5-4.9); Potassium, Blood 3.8 mmol/L (3.5-5.5); Sodium, Blood 140 mmol/L (136-145); Total Protein, Blood 5.4 g/dL (6.4-8.2)
--- NOTE | 2019-07-07 06:17 | NUR ---
Patients A&O x4. Vitals stable. Tolerating clear liquids, saline locked. Complaints of pain to abdomen and shoulders. Unsteady gait, Up to bedside commode with one assist. Passing gas. Urine incontinence.
--- NOTE | 2019-07-07 18:41 | NUR ---
SHIFT SUMMARY PATIENT HAS SLEPT INTERMITANTLY T/O AFTERNOON AFTER UP IN CHAIR FROM BREAKFAST TIME TO LUNCH TIME. DENIES NEEDING PAIN MED THIS AFTERNOON AFTER 1 DOSE OF FENTANYL IV ADMIN THIS AM. MOVES WELL TO CHAIR AND BSC W/MINIMAL ASSIST. LAP SITES CLEAR. TOLERATING CL W/O C/O. SMALL STOOL TODAY.
--- NOTE | 2019-07-08 06:33 | NUR ---
Pt A/O. Vital signs stable. Tolerating full liquid diet. No complaints of pain. Passing gas. Voiding freely. Patient refused lab draws this morning. Ambulating to commode with one assist.
[2019-07-08 07:24] LABS: BASOPHILS ABSOLUTE AUTO 0.03 K/mm3 (0.00-0.23); BASOPHILS PERCENT AUTO 0 % (0-2); EOSINOPHILS ABSOLUTE AUTO 0.15 K/mm3 (0.00-0.68); EOSINOPHILS PERCENT AUTO 2 % (0-6); Hemoglobin 9.6 g/dL (11.5-16.0); IMMATURE GRAN ABSOLUTE AUTO 0.07 K/mm3 (0.00-0.10); IMMATURE GRAN PERCENT AUTO 1 % (0-1); LYMPHOCYTES ABSOLUTE AUTO 3.22 K/mm3 (0.84-5.20); LYMPHOCYTES PERCENT AUTO 31 % (21-46); MONOCYTES ABSOLUTE AUTO 0.63 K/mm3 (0.16-1.47); MONOCYTES PERCENT AUTO 6 % (4-13); Mean Corpuscular HGB 27.9 pg (26.0-34.0); Mean Platelet Volume 10.6 fL (9.1-12.4); NEUTROPHILS ABSOLUTE AUTO 6.16 K/mm3 (1.96-9.15); NEUTROPHILS PERCENT AUTO 60 % (41-73); Platelet Count 155 K/mm3 (150-400); RDW Coefficient Variation 14.8 % (11.7-14.2); RDW Standard Deviation 48.9 fL (35.1-46.3); Red Blood Cell Count 3.44 M/mm3 (3.80-5.20); White Blood Cell Count 10.26 K/mm3 (4.00-11.30)
[2019-07-08 07:27] LABS: Mean Corpuscular Volume 90 fL (80-100)
--- NOTE | 2019-07-08 07:30 | NUR ---
pt awake laying in bed stated she had lg loose stool last night pt denies nausea at this time no shoulder pain
--- NOTE | 2019-07-08 09:45 | NUR ---
DR SMALLWOOD BY TO SEE PT
[2019-07-08] MEDS ORDERED: AMOCLA500 PO (10:23)
--- NOTE | 2019-07-08 11:14 | NUR ---
discharge instructions reviewed with pt verbalized rx called in to [facility] by to talk with pt re info for [facility] per pt req family at bedside pt declined probiotics called in she has at home no rx for pain meds pt also has at home
--- NOTE | 2019-07-08 11:40 | NUR ---
ec escort to car with family no acute changes
== END 2019-07-08 11:45 | disposition home or self-care (01) | DRG 853 ==
LOC: ER 21:55 → MEDS 21:56 → ICUW 07-05 20:23 → SURS 07-06 14:04
PROVIDERS: Emergency Medicine; Family Medicine; Surgery; ADMIT Hospitalist
PROC: 0FT44ZZ Resection of Gallbladder, Percutaneous Endoscopic Approach (ICD-10-PCS; principal; 2019-07-05 20:45)
DX: A41.9 Sepsis, unspecified organism (principal); K65.0 Generalized (acute) peritonitis; E23.0 Hypopituitarism; K80.12 Calculus of gallbladder with acute and chronic cholecystitis without obstruction; I12.9 Hypertensive chronic kidney disease with stage 1 through stage 4 chronic kidney disease, or unspecified chronic kidney disease; N18.3 Chronic kidney disease, stage 3 (moderate); E11.22 Type 2 diabetes mellitus with diabetic chronic kidney disease; E11.51 Type 2 diabetes mellitus with diabetic peripheral angiopathy without gangrene; E03.9 Hypothyroidism, unspecified; D63.1 Anemia in chronic kidney disease; F17.200 Nicotine dependence, unspecified, uncomplicated; Z88.2 Allergy status to sulfonamides; Z88.8 Allergy status to other drugs, medicaments and biological substances; Z79.84 Long term (current) use of oral hypoglycemic drugs; Z79.82 Long term (current) use of aspirin; Z79.899 Other long term (current) drug therapy
CPT/HCPCS: 36415; 74176; 80053; 80069; 81001; 82947; 83605; 83690; 84100; 85025; 87040; 87086; 88304; 96361; 96365; 96366; 96375; 96376; 99285-25; C9113; G0378; J0360; J1100; J1650; J1720; J1815; J2270; J2370; J2405; J2543; J2704; J2710; J2765; J3010; J7030

== ENCOUNTER 2019-12-03 12:47 | Emergency (ER) | payer OTHER, MEDICARE ==
[~2019-12-03] VITALS: Ht 152.4 cm; Wt 59.0 kg
[~2019-12-03 12:47] MED LIST changes: +Aspirin EC81 MG PO; +METO25ER PO; +POTA10T PO; +Vsl#3 Capsule1 EACH PO; +Zantac150 MG PO
[2019-12-03 14:35] LABS: BASOPHILS ABSOLUTE AUTO 0.05 K/mm3 (0.00-0.23); BASOPHILS PERCENT AUTO 1 % (0-2); EOSINOPHILS ABSOLUTE AUTO 0.06 K/mm3 (0.00-0.68); EOSINOPHILS PERCENT AUTO 1 % (0-6); Hemoglobin 14.2 g/dL (11.5-16.0); IMMATURE GRAN ABSOLUTE AUTO 0.06 K/mm3 (0.00-0.10); IMMATURE GRAN PERCENT AUTO 1 % (0-1); LYMPHOCYTES ABSOLUTE AUTO 1.59 K/mm3 (0.84-5.20); LYMPHOCYTES PERCENT AUTO 16 % (21-46); MONOCYTES ABSOLUTE AUTO 0.79 K/mm3 (0.16-1.47); MONOCYTES PERCENT AUTO 8 % (4-13); Mean Corpuscular HGB Conc 31.6 g/dL (31.5-36.5); Mean Corpuscular Volume 89 fL (80-100); Mean Platelet Volume 9.7 fL (9.1-12.4); NEUTROPHILS ABSOLUTE AUTO 7.21 K/mm3 (1.96-9.15); NEUTROPHILS PERCENT AUTO 74 % (41-73); Platelet Count 211 K/mm3 (150-400); RDW Coefficient Variation 14.5 % (11.7-14.2); RDW Standard Deviation 46.9 fL (35.1-46.3); Red Blood Cell Count 5.08 M/mm3 (3.80-5.20); White Blood Cell Count 9.76 K/mm3 (4.00-11.30)
[2019-12-03 14:51] LABS: Alanine Aminotransfer (ALT/SGP 94 U/L (12-78); Albumin, Blood 3.7 g/dL (3.4-5.0); Albumin/Globulin Ratio 0.9 (0.8-1.8); Alk Phos 109 U/L (50-136); Anion Gap 7 mmol/L (6-16); Aspartate Aminotrans (AST/SGOT 69 U/L (12-37); Bilirubin, Total 0.4 mg/dL (0.1-1.0); Blood Urea Nitrogen 23 mg/dL (8-24); CO2, Blood 23 mmol/L (21-32); Calcium, Blood 9.2 mg/dL (8.5-10.1); Chloride, Blood 101 mmol/L (98-108); Creatinine, Blood 1.35 mg/dL (0.40-1.00); Globulin, Blood 4.1 g/dL (2.2-4.0); Glomerular Filtration Rate 40 (60-); Glucose, Blood 58 mg/dL (70-99); Potassium, Blood 4.7 mmol/L (3.5-5.5); Sodium, Blood 131 mmol/L (136-145); Total Protein, Blood 7.8 g/dL (6.4-8.2); Troponin I <0.015 ng/mL (0.000-0.040)
[2019-12-03] MEDS ORDERED: LINZESS72 MCG PO (14:53)
[2019-12-03] MEDS ORDERED: DOCU100 PO (14:53)
[2019-12-03] MEDS ORDERED: Zantac150 MG (14:53)
[2019-12-03] MEDS ORDERED: Zofran4 MG PO (17:06)
== END 2019-12-03 17:17 | disposition home or self-care (01) ==
LOC: ER 12:47
PROVIDERS: Physician Assistant
DX: J11.1 Influenza due to unidentified influenza virus with other respiratory manifestations (principal); E11.22 Type 2 diabetes mellitus with diabetic chronic kidney disease; I12.9 Hypertensive chronic kidney disease with stage 1 through stage 4 chronic kidney disease, or unspecified chronic kidney disease; N18.9 Chronic kidney disease, unspecified; E03.9 Hypothyroidism, unspecified; E11.51 Type 2 diabetes mellitus with diabetic peripheral angiopathy without gangrene; I73.9 Peripheral vascular disease, unspecified; F17.200 Nicotine dependence, unspecified, uncomplicated; Z79.82 Long term (current) use of aspirin; Z79.899 Other long term (current) drug therapy; Z88.2 Allergy status to sulfonamides; Z88.8 Allergy status to other drugs, medicaments and biological substances
CPT/HCPCS: 36415; 71046; 80053; 83880; 84484; 85025; 93005; 93010; 96374; 99284-25; J2405; J7030

== ENCOUNTER 2020-05-07 11:50 | Day surgery (SDC) | payer OTHER ==
[~2020-05-07] VITALS: Ht 157.5 cm; Wt 134.0 kg
[~2020-05-07 11:50] MED LIST changes: +ABILIFY MYCITE5 M2 PO; +ACET325 PO; +DOC250 PO; +ESTROGEN VAG; +EUTHYROX50 MCG PO; +FAMO20 PO; +HUMALOG KW100 UNIT/1 SC; +HYDR10 PO; +Klor-Con 1010 MEQ PO; +LINZESS72 MCG PO; +TRAZ50 PO; +ZYRTEC10 M3 PO; +Zofran4 MG PO
== END 2020-05-07 13:42 | disposition home or self-care (01) ==
LOC: ORSCSDS 11:50
PROVIDERS: Internal Medicine Gastroenterology
PROC: 0DBL8ZX Excision of Transverse Colon, Via Natural or Artificial Opening Endoscopic, Diagnostic (ICD-10-PCS; principal; 2020-05-07 13:00)
PROC: 0DBN8ZX Excision of Sigmoid Colon, Via Natural or Artificial Opening Endoscopic, Diagnostic (ICD-10-PCS; principal; 2020-05-07 13:00)
PROC: 0DBM8ZX Excision of Descending Colon, Via Natural or Artificial Opening Endoscopic, Diagnostic (ICD-10-PCS; principal; 2020-05-07 13:00)
DX: R10.9 Unspecified abdominal pain (principal); R10.32 Left lower quadrant pain; Z86.010 Personal history of colon polyps; D12.3 Benign neoplasm of transverse colon; D12.4 Benign neoplasm of descending colon; D12.5 Benign neoplasm of sigmoid colon; K64.8 Other hemorrhoids; K57.30 Diverticulosis of large intestine without perforation or abscess without bleeding; K64.4 Residual hemorrhoidal skin tags; N18.9 Chronic kidney disease, unspecified; I12.9 Hypertensive chronic kidney disease with stage 1 through stage 4 chronic kidney disease, or unspecified chronic kidney disease; E11.22 Type 2 diabetes mellitus with diabetic chronic kidney disease; Z83.71 Family history of colonic polyps; E03.9 Hypothyroidism, unspecified; F32.9 Major depressive disorder, single episode, unspecified; E78.5 Hyperlipidemia, unspecified; Z95.0 Presence of cardiac pacemaker; F17.210 Nicotine dependence, cigarettes, uncomplicated; Z79.82 Long term (current) use of aspirin; Z79.4 Long term (current) use of insulin; Z79.899 Other long term (current) drug therapy
CPT/HCPCS: 82947; 88305; J2704; J7120

== ENCOUNTER 2020-08-28 14:51 | Observation (INO) | payer OTHER, MEDICARE ==
[~2020-08-28] VITALS: Ht 154.9 cm; Wt 59.0 kg
[~2020-08-28 14:51] MED LIST changes: +Acidophilus1 EAC1 PO; +Hydrocortisone5 MG PO; -Vsl#3 Capsule1 EACH PO
[2020-08-28 15:40] LABS: BASOPHILS ABSOLUTE AUTO 0.09 K/mm3 (0.00-0.23); BASOPHILS PERCENT AUTO 1 % (0-2); EOSINOPHILS ABSOLUTE AUTO 0.09 K/mm3 (0.00-0.68); EOSINOPHILS PERCENT AUTO 1 % (0-6); Hematocrit 40.1 % (33.0-51.0); Hemoglobin 12.9 g/dL (11.5-16.0); IMMATURE GRAN ABSOLUTE AUTO 0.12 K/mm3 (0.00-0.10); IMMATURE GRAN PERCENT AUTO 1 % (0-1); LYMPHOCYTES ABSOLUTE AUTO 1.72 K/mm3 (0.84-5.20); LYMPHOCYTES PERCENT AUTO 11 % (21-46); MONOCYTES ABSOLUTE AUTO 1.34 K/mm3 (0.16-1.47); MONOCYTES PERCENT AUTO 8 % (4-13); Mean Corpuscular HGB 28.2 pg (26.0-34.0); Mean Corpuscular HGB Conc 32.2 g/dL (31.5-36.5); Mean Corpuscular Volume 88 fL (80-100); Mean Platelet Volume 10.8 fL (9.1-12.4); NEUTROPHILS ABSOLUTE AUTO 12.82 K/mm3 (1.96-9.15); NEUTROPHILS PERCENT AUTO 79 % (41-73); Platelet Count 205 K/mm3 (150-400); RDW Coefficient Variation 14.7 % (11.7-14.2); Red Blood Cell Count 4.58 M/mm3 (3.80-5.20); White Blood Cell Count 16.18 K/mm3 (4.00-11.30)
[2020-08-28 16:06] LABS: Alanine Aminotransfer (ALT/SGP 72 U/L (12-78); Albumin, Blood 2.6 g/dL (3.4-5.0); Albumin/Globulin Ratio 0.6 (0.8-1.8); Alk Phos 116 U/L (50-136); Anion Gap 6 mmol/L (6-16); Aspartate Aminotrans (AST/SGOT 65 U/L (12-37); Bilirubin, Total 0.5 mg/dL (0.1-1.0); Blood Urea Nitrogen 23 mg/dL (8-24); Bun/Creatinine Ratio 20.9 (12.0-20.0); CO2, Blood 25 mmol/L (21-32); Calcium, Blood 8.9 mg/dL (8.5-10.1); Chloride, Blood 100 mmol/L (98-108); Ethanol (Alcohol), Blood, Med <3 mg/dL; Globulin, Blood 4.2 g/dL (2.2-4.0); Glomerular Filtration Rate 51 (60-); Glucose, Blood 85 mg/dL (70-99); Potassium, Blood 4.8 mmol/L (3.5-5.5); Sodium, Blood 131 mmol/L (136-145); Total Protein, Blood 6.8 g/dL (6.4-8.2)
[2020-08-28 17:31] LABS: International Normalized Ratio 1.08; Prothrombin Time Results 11.5 Sec (9.7-11.5)
[2020-08-28 17:52] LABS: Source, Urine Catheter
[2020-08-28 18:17] LABS: Appearance, Urine Turbid (Clear); Bilirubin, Urine Neg (Neg); Blood, Urine 5+ (Neg); Color, Urine Yellow (P-Yellow); Glucose Qualitative, Urine Neg (Neg); Ketones, Urine Neg (Neg); Leukocyte Esterase, Urine 3+ (Neg); Nitrite, Urine Neg (Neg); Protein, Urine 3+ (Neg); Specific Gravity, Urine 1.015 (1.003-1.022); Urobilinogen, Urine NORM (Normal); pH, Urine 6.5 (5.0-8.0)
[2020-08-28 18:29] LABS: Bacteria Many /hpf; Red Blood Cells, Urine TNTC /hpf (0-2); Squamous Epithelial Cells Few /hpf (Few); White Blood Cells, Urine TNTC /hpf (0-5)
[2020-08-28] MEDS ORDERED: GLIP5 PO (18:32)
[2020-08-28 18:35] LABS: U Oxycodone Screen DETECTED
[2020-08-28 18:36] LABS: U Amphetamine Screen Not Detected; U Barbituate Screen Not Detected; U Benzodiazapine Screen Not Detected; U Buprenorphine Screen Not Detected; U Cannabinoids Screen Not Detected; U Cocaine Screen Not Detected; U Methadone Screen Not Detected; U Methamphetamine Screen Not Detected; U Opiates Screen Not Detected; U Phencyclidine Screen Not Detected; U Propoxyphene Screen Not Detected
[2020-08-28] MEDS ORDERED: Florastor250 MG PO (18:37)
[2020-08-28] MEDS ORDERED: PROC25S PR (18:37)
[2020-08-28] MEDS ORDERED: ARTIFICIAL TEAR15 M2 BOTHEYES (20:37)
[2020-08-28] MEDS ORDERED: Hydrocortisone5 MG PO (20:42)
[2020-08-28] MEDS ORDERED: BENADRYL25 MG PO (20:48)
[2020-08-28] MEDS ORDERED: CRANBERRY500 M1 PO (20:49)
--- NOTE | 2020-08-28 23:11 | NUR ---
80 YR OLD FEMALE ADMITTED TO FLOOR FROM THE ED WITH DX OF UTI. ALERT AND ORIENTED TO SELF, VERBAL RESPONSE ADEQUATE, ED RN VOICED SOME AGRESSIVE BEHAVIOR IN THE ED, BUT NONE NOTED AT THIS TIME. INCONT OF URINE, LINEN CHANGED. ORIENTED TO USE OF CALL LIGHT. CALL LIGHT IN [facility]
--- NOTE | 2020-08-29 03:44 | NUR ---
SHIFT SUMMARY ADMITTED TO FLOOR EARLIER FROM THE ED, IVF OF NS INFUSING AT 75ML/HR. RECEIVED TYLENOL FOR HEADACHE, RESTING QUIETLY AT THIS TIME. CALL LIGHT IN REACH
[2020-08-29 05:17] LABS: BASOPHILS ABSOLUTE AUTO 0.06 K/mm3 (0.00-0.23); BASOPHILS PERCENT AUTO 1 % (0-2); EOSINOPHILS ABSOLUTE AUTO 0.18 K/mm3 (0.00-0.68); EOSINOPHILS PERCENT AUTO 2 % (0-6); Hematocrit 38.9 % (33.0-51.0); Hemoglobin 12.6 g/dL (11.5-16.0); IMMATURE GRAN ABSOLUTE AUTO 0.05 K/mm3 (0.00-0.10); IMMATURE GRAN PERCENT AUTO 0 % (0-1); LYMPHOCYTES PERCENT AUTO 23 % (21-46); MONOCYTES ABSOLUTE AUTO 0.87 K/mm3 (0.16-1.47); MONOCYTES PERCENT AUTO 7 % (4-13); Mean Corpuscular HGB 28.1 pg (26.0-34.0); Mean Corpuscular HGB Conc 32.4 g/dL (31.5-36.5); Mean Corpuscular Volume 87 fL (80-100); Mean Platelet Volume 10.4 fL (9.1-12.4); NEUTROPHILS ABSOLUTE AUTO 7.97 K/mm3 (1.96-9.15); NEUTROPHILS PERCENT AUTO 67 % (41-73); Platelet Count 191 K/mm3 (150-400); RDW Coefficient Variation 14.5 % (11.7-14.2); RDW Standard Deviation 46.3 fL (35.1-46.3); Red Blood Cell Count 4.48 M/mm3 (3.80-5.20); White Blood Cell Count 11.83 K/mm3 (4.00-11.30)
[2020-08-29 05:39] LABS: Albumin, Blood 2.6 g/dL (3.4-5.0); Albumin/Globulin Ratio 0.7 (0.8-1.8); Bilirubin, Total 0.3 mg/dL (0.1-1.0); Bun/Creatinine Ratio 19.1 (12.0-20.0); Calcium, Blood 8.7 mg/dL (8.5-10.1); Globulin, Blood 3.7 g/dL (2.2-4.0); Potassium, Blood 4.1 mmol/L (3.5-5.5); Total Protein, Blood 6.3 g/dL (6.4-8.2)
--- NOTE | 2020-08-29 08:45 | NUR ---
ALLERGY MEDICATION: PATIENT REPORTED STUFFY NOSE AND NASAL DRAINAGE. SHE REPORTS THAT SHE TAKES DIPHENHYDRAMINE DAILY FOR ALLERGIES. DISCUSSED WITH DR. ALDANA.
--- NOTE | 2020-08-29 10:36 | NUR ---
HOME PAIN MEDICATIONS: PATIENT IS REPORTING PAIN IN HER NECK. SHE REPORTS TAKING A PRN OXYCODONE AT HOME. PRN OXYCODONE NOTED ON THE PATIENT'S HOME MEDICATIONS. NOTIFIED DR. ALDANA.
--- NOTE | 2020-08-29 14:01 | NUR ---
ELEVATED BP: NOTIFIED DR. ALDANA OF ELEVATED BP. PATIENT ALSO COMPLAINING OF HEADACHE. PATIENT REPORTS IT HURST MOST WHEN SHE MOVES. ALSO REPORTING NECK AND BACK PAIN. DR. ALDANA TO ROOM.RECHECK OF BP SHOWED A LOWER BP. PATIENT MEDICATED WITH SCHEDULED MEDICAITONS. NEW ORDERS ENTERED.
--- NOTE | 2020-08-29 19:45 | NUR ---
END OF SHIFT SUMMARY OVERALL THE PATIENT REPORTED THAT SHE FELT MUCH BETTER THAN YESTERDAY. PATIENT REPORTED ELEVATED PAIN LATE THIS MORNING. MEDICATED ONCE PER PRNS AND NEW ORDERED RECEIVED FOR HER HOME PRN PAIN MEDICATIONS. MEDICATED ACCORDINGLY. IN THE EARLY AFTERNOON, PATIENT EXPERIENCED A HIGHER LEVEL OF HEADACHE PAIN. PATIENT HAD AN ELEVATED BP (SEE NURSE'S NOTE). MEDICATED PER SCHEDULED BP MEDICATIONS. BP CAME BACK DOWN (SEE VITALS). PATIENT REPORTED THAT THE HEADACHE RESOLVED. PATIENT SLEPT MUCH OF THE AFTERNOON. EASILY AROUSABLE. PATIENT GROGGY AT FIRST, BUT ORIENTED ONCE WAKING FULLY. PATIENT HAD A MINIMAL APPETITE FOR BREAKFAST AND LUNCH. PATIENT HAD AN INCREASED APPETITE FOR DINNER WITH HER DAUGHTER IN THE ROOM.
--- NOTE | 2020-08-30 04:08 | NUR ---
SHIFT SUMMARY ASSUMED CARE OF PT AT 1900. PT IS A/OX4, WITH FORGETFULNESS. PT AWOKE DURING THE NIGHT SCARED AND CONFUSED ABOUT HWERE SHE WAS, PT WAS QUICKLY REORIENTED AND FELL BACK ASLEEP. PT C/O BACK PAIN AND HEADAHCE, MEDICATED PER EMAR. LUNG SOUNDS HAVE CRACKLES AT THE BASES, HEART SOUNDS REGUALR, TELE SHOWS ARTIAL PACED @ 60. PT WAS CONTINENT T/O THE NIGHT. NO ACUTE EVENTS DURING THE NIGHT. PT SLEPT MOST OF THE NIGHT. CALL LIGHT IN REACH, BED IN LOWEST POSITON.
[2020-08-30 05:31] LABS: BASOPHILS ABSOLUTE AUTO 0.05 K/mm3 (0.00-0.23); BASOPHILS PERCENT AUTO 1 % (0-2); EOSINOPHILS ABSOLUTE AUTO 0.19 K/mm3 (0.00-0.68); EOSINOPHILS PERCENT AUTO 3 % (0-6); Hematocrit 35.8 % (33.0-51.0); Hemoglobin 11.6 g/dL (11.5-16.0); IMMATURE GRAN ABSOLUTE AUTO 0.03 K/mm3 (0.00-0.10); IMMATURE GRAN PERCENT AUTO 0 % (0-1); LYMPHOCYTES ABSOLUTE AUTO 1.93 K/mm3 (0.84-5.20); LYMPHOCYTES PERCENT AUTO 26 % (21-46); MONOCYTES ABSOLUTE AUTO 0.43 K/mm3 (0.16-1.47); MONOCYTES PERCENT AUTO 6 % (4-13); Mean Corpuscular HGB 28.6 pg (26.0-34.0); Mean Corpuscular HGB Conc 32.4 g/dL (31.5-36.5); Mean Corpuscular Volume 88 fL (80-100); Mean Platelet Volume 10.1 fL (9.1-12.4); NEUTROPHILS ABSOLUTE AUTO 4.91 K/mm3 (1.96-9.15); NEUTROPHILS PERCENT AUTO 65 % (41-73); Platelet Count 195 K/mm3 (150-400); RDW Coefficient Variation 14.5 % (11.7-14.2); RDW Standard Deviation 47.6 fL (35.1-46.3); Red Blood Cell Count 4.05 M/mm3 (3.80-5.20); White Blood Cell Count 7.54 K/mm3 (4.00-11.30)
--- NOTE | 2020-08-30 15:44 | NUR ---
summary PT HAS BEEN A/O X3 TODAY, SOMEWHAT FORGETFUL ON WAKING HOWEVER REORIENTS EASILY. MENTATION IMPROVED. SHE STATE CONTINUING WEAKNESS/FATIGUE, STATE CONTINUING CHR BACK/NECK PAIN THAT IS "FRUSTRATING" ABILTITY TO AMBULATE, PERFORM ADLS. DR ALDANA HAD INITIALLY THOUGHT TO D/C HER HOME TODAY HOWEVER ON ASSESSMENT RECONSIDER & ORDER PT/OT EVAL, POSSIBLE D/C HOME TOMORROW. HAVE GIVEN OXYCODONE TODAY FOR PAIN RELIEF. [facility] UP FOR LUN[facility] HOWEVER TOO FATIGUED TO STAY UP FOR MORE THAN A FEW MINUTES THEN BACK TO BED, HAS NAPPED MUCH OF DAY. VSS/AFEBRILE.
--- NOTE | 2020-08-30 18:36 | NUR ---
PT IS SEEING LITTLE KIDS AND OTHER PEOPLE IN HER ROOM. SHE SEEMS VERY CONFUSED AND FORGETS THAT SHE IS IN THE HOSPITAL. NURSE NOTIFIED.
--- NOTE | 2020-08-31 01:51 | NUR ---
08/30/201934 PT RESTING COMFORTABLY IN BED; CHEERFUL; DENIES PAIN OR NAUSEA; ALERT AND ORIENTED X 2; PT REQUIRED FREQUENT REORIENTATION SHE VERY FORGETFUL AT TIMES; PT TOOK ALL H.S. MEDS WITHOUT ISSUE; BED ALARM APPLIED FOR SAFETY CONCERNS BY NURSING STAFF.
--- NOTE | 2020-08-31 04:05 | NUR ---
SHIFT SUMMARY: 80 Y/O FEMALE RESTED COMFORTABLY ALL SHIFT; DENIES PAIN OR NAUSEA; ALERT AND ORIENTED X 2, VERY FORGETFUL AT TIMES AND REQUIRES FREQUENT REDIRECTION BY NURSING STAFF; BED ALARM APPLIED, BED LOW POSITION WITH CALL LIGHT AT SIDE.
--- NOTE | 2020-08-31 11:53 | NUR ---
DR ALDANA, DR UPTON IN THIS AM AFTER OCCTHER EVAL. STATE PT OK FOR D/C HOME THIS AFTERNOON w HOME HEALTH F/U. PT DAUGHTER/CAREGIVER ENMANEUL NOTIFIED, WILL PROVIDE TRANSPORT HOME. SCRIPTS FAXED TO [facility]/REQUEST. TOOL SETTER PROVIDE BEDBATH, DAUGHTER TALIA BRING IN CLOTHES. PT IS PLEASANT, STATE READY FOR D/C HOME. D/C INSTRUCT REVIEWED w PT'S DAUGHTER/CAREGIVER.
[2020-08-31] MEDS ORDERED: CEFD300 PO (12:51)
== END 2020-08-31 14:22 | disposition home health service (06) ==
LOC: ER 14:51 → MEDS 14:52 → ENPENDDIS 08-31 11:31 → MEDS 08-31 14:22
PROVIDERS: Emergency Medicine; Family Medicine; ADMIT Internal Medicine
DX: N39.0 Urinary tract infection, site not specified (principal); G93.49 Other encephalopathy; I12.9 Hypertensive chronic kidney disease with stage 1 through stage 4 chronic kidney disease, or unspecified chronic kidney disease; E11.22 Type 2 diabetes mellitus with diabetic chronic kidney disease; N18.30 Chronic kidney disease, stage 3 unspecified; D63.1 Anemia in chronic kidney disease; E86.0 Dehydration; E03.9 Hypothyroidism, unspecified; H02.401 Unspecified ptosis of right eyelid; D32.9 Benign neoplasm of meninges, unspecified; K21.9 Gastro-esophageal reflux disease without esophagitis; H54.8 Legal blindness, as defined in USA; F17.210 Nicotine dependence, cigarettes, uncomplicated; E23.2 Diabetes insipidus; Z90.49 Acquired absence of other specified parts of digestive tract; Z90.710 Acquired absence of both cervix and uterus; Z95.0 Presence of cardiac pacemaker; Z88.1 Allergy status to other antibiotic agents; Z88.2 Allergy status to sulfonamides; Z88.5 Allergy status to narcotic agent; Z88.8 Allergy status to other drugs, medicaments and biological substances; Z91.041 Radiographic dye allergy status; Z79.82 Long term (current) use of aspirin; Z79.84 Long term (current) use of oral hypoglycemic drugs; Z79.899 Other long term (current) drug therapy; Z90.5 Acquired absence of kidney; Z85.528 Personal history of other malignant neoplasm of kidney; Z23 Encounter for immunization; Z51.5 Encounter for palliative care
CPT/HCPCS: 36415; 70450; 71046; 74176; 80053; 81001; 82947; 84443; 85025; 85610; 87086; 93005; 93010; 96365; 96366; 96372; 96376; 97161; 97165; 97535; 99285-25; A9270; A9270-GY; G0378; G0480; J0696; J1650; J7030; Q0163